=== PATIENT | female | born 1995 | race Two or more races ===

== ENCOUNTER 2023-09-28 16:57 | Emergency (ER) | payer OTHER ==
[~2023-09-28] VITALS: Ht 172.7 cm; Wt 61.2 kg
[2023-09-28] MEDS ORDERED: PRENATAL + DHA1 EAC1 PO (17:59)
[2023-09-28] MEDS ORDERED: PEPCID AC20 MG PO (17:59)
[2023-09-28 20:13] LABS: HEMATOCRIT 36.6 % (36.0-45.00); HEMOGLOBIN 12.6 g/dL (12.0-15.00); MEAN CELL VOLUME 87.5 fL (80.00-100.00); MEAN CORPUSCULAR HEMOGLOBIN 30.1 pg (27.00-32.0); MEAN CORPUSCULAR HGB CONC 34.4 g/dl (32.0-36.0); PLATELET COUNT 199 K/uL (150-450); RED BLOOD COUNT 4.19 M/uL (4.00-6.00); RED CELL DISTRIBUTION WIDTH 13.2 % (11.5-14.5)
[2023-09-28 20:39] LABS: PH,URINE 6.5 (5.0-8.0); URINE APPEARANCE Clear; URINE BILIRRUBIN Negative (NEGATIVE); URINE BLOOD Negative; URINE COLOR Yellow; URINE GLUCOSE Negative (NEGATIVE); URINE LEUKOCYTE Negative; URINE NITRATE Negative; URINE PROTEIN Negative (NEGATIVE)
[2023-09-28 20:40] LABS: URINE BACTERIA 67.9 uL (0.0-1933); URINE RBC 8.7 uL (0.0-20.8)
[2023-09-28 20:41] LABS: URINE WBC 1.3 uL (0.0-23.2)
[2023-09-28] MEDS ORDERED: PRENA1 TRUE CO1 EACH PO (21:02)
== END 2023-09-28 21:09 | disposition home or self-care (01) ==
LOC: ER 16:59
PROVIDERS: General Practice
DX: O26.891 Other specified pregnancy related conditions, first trimester (principal); Z3A.01 Less than 8 weeks gestation of pregnancy; R10.2 Pelvic and perineal pain

== ENCOUNTER 2023-11-06 07:07 | Emergency (ER) | payer OTHER ==
[~2023-11-06] VITALS: Ht 172.7 cm; Wt 62.6 kg
[~2023-11-06 07:07] MED LIST: PEPCID AC20 MG PO; PRENA1 TRUE CO1 EACH PO; PRENATAL + DHA1 EAC1 PO
== END 2023-11-06 11:09 | disposition home or self-care (01) ==
LOC: ER 07:08
DX: U07.1 COVID-19 (principal)

== ENCOUNTER 2024-03-04 09:04 | Emergency (ER) | payer OTHER ==
[~2024-03-04] VITALS: Ht 172.7 cm; Wt 67.6 kg
[2024-03-04 10:01] LABS: HEMATOCRIT 33.8 % (36.0-45.00); HEMOGLOBIN 11.6 g/dL (12.0-15.00); MEAN CELL VOLUME 88.4 fL (80.00-100.00); MEAN CORPUSCULAR HEMOGLOBIN 30.3 pg (27.00-32.0); MEAN CORPUSCULAR HGB CONC 34.3 g/dl (32.0-36.0); PLATELET COUNT 191 K/uL (150-450); RED BLOOD COUNT 3.82 M/uL (4.00-6.00); RED CELL DISTRIBUTION WIDTH 13.4 % (11.5-14.5)
[2024-03-04 10:27] LABS: INR 0.96; PARTIAL THROMBOPLASTIN TIME 27.3 SECONDS (22.0-34.0); PROTHROMBIN TIME 10.1 SECONDS (9.0-11.5)
== END 2024-03-04 12:42 | disposition home or self-care (01) ==
LOC: ER 09:05
PROVIDERS: Emergency Medicine
DX: O26.893 Other specified pregnancy related conditions, third trimester (principal); R04.0 Epistaxis; Z3A.28 28 weeks gestation of pregnancy

== ENCOUNTER 2024-05-07 21:47 | Outpatient (CLI) | payer OTHER ==
[2024-05-07 21:58] VITALS: BP 109/71
[2024-05-07] MEDS ORDERED: RINGERS SOLUTION,LACTATED 1,000 ML IV SCH (22:30)
[2024-05-07 23:20] LABS: HEMATOCRIT 34.4 % (36.0-45.00); HEMOGLOBIN 11.8 g/dL (12.0-15.00); MEAN CELL VOLUME 89.4 fL (80.00-100.00); MEAN CORPUSCULAR HEMOGLOBIN 30.6 pg (27.00-32.0); MEAN CORPUSCULAR HGB CONC 34.2 g/dl (32.0-36.0); PLATELET COUNT 183 K/uL (150-450); RED BLOOD COUNT 3.85 M/uL (4.00-6.00); RED CELL DISTRIBUTION WIDTH 13.7 % (11.5-14.5)
[2024-05-07 23:21] LABS: URINE APPEARANCE Clear; URINE BILIRRUBIN Negative (NEGATIVE); URINE BLOOD Negative; URINE COLOR Yellow; URINE GLUCOSE Negative (NEGATIVE); URINE KETONE Negative (NEGATIVE); URINE LEUKOCYTE Negative; URINE NITRATE Negative; URINE PROTEIN Negative (NEGATIVE)
[2024-05-07 23:25] LABS: URINE BACTERIA 1523.3 uL (0.0-1933); URINE RBC 16.1 uL (0.0-20.8); URINE WBC 20.4 uL (0.0-23.2)
[2024-05-07 23:34] LABS: URINE CAST 0.91 uL (0.0-1.40)
[2024-05-07 23:56] VITALS: BP 103/68
[2024-05-08 04:39] VITALS: BP 102/65
[2024-05-08 07:30] VITALS: BP 100/63; O2SAT 97
[2024-05-08] MEDS ORDERED: ACETAMINOPHEN 500 MG GEL..CAP PO ONE (10:00)
[2024-05-08 11:50] VITALS: BP 105/71; O2SAT 97
[2024-05-08 15:10] VITALS: BP 105/71
== END 2024-05-08 15:10 | disposition home or self-care (01) ==
LOC: OBS/DEL 21:47
PROVIDERS: ATTEND Obstetrics & Gynecology
DX: O26.893 Other specified pregnancy related conditions, third trimester (principal); O26.849 Uterine size-date discrepancy, unspecified trimester; O36.8199 Decreased fetal movements, unspecified trimester, other fetus; Z3A.39 39 weeks gestation of pregnancy

== ENCOUNTER 2024-05-22 05:44 | Inpatient (IN) | payer OTHER ==
[~2024-05-22] VITALS: Ht 172.7 cm; Wt 3.6 kg
[2024-05-22 06:04] VITALS: BP 113/66
[2024-05-22 06:40] LABS: PH,URINE 6.5 (5.0-8.0); URINE APPEARANCE Clear; URINE BILIRRUBIN Negative (NEGATIVE); URINE BLOOD Small; URINE COLOR Yellow; URINE GLUCOSE Negative (NEGATIVE); URINE KETONE Negative (NEGATIVE); URINE LEUKOCYTE Trace; URINE NITRATE Negative; URINE PROTEIN Negative (NEGATIVE); URINE UROBILINOGEN 0.2 E.U./dl
[2024-05-22 06:44] LABS: URINE BACTERIA 965.1 uL (0.0-1933); URINE EPITHELIAL CELLS 39.5 uL (0.0-38.8); URINE RBC 2.7 uL (0.0-20.8); URINE WBC 56.3 uL (0.0-23.2)
[2024-05-22 06:44] LABS: HEMOGLOBIN 12.8 g/dL (12.0-15.00); MEAN CORPUSCULAR HEMOGLOBIN 30.6 pg (27.00-32.0); MEAN CORPUSCULAR HGB CONC 34.7 g/dl (32.0-36.0); PLATELET COUNT 171 K/uL (150-450); RED CELL DISTRIBUTION WIDTH 14.3 % (11.5-14.5)
[2024-05-22] MEDS ORDERED: VALTREX1000 MG PO (07:11)
[2024-05-22 07:20] LABS: INR 0.94; PARTIAL THROMBOPLASTIN TIME 27.7 SECONDS (22.0-34.0); PROTHROMBIN TIME 10.3 SECONDS (9.0-11.5)
[2024-05-22 07:37] VITALS: BP 115/66; O2SAT 99
[2024-05-22] MEDS ORDERED: OXYTOCIN 20 UNITS/500ML RL PIGGYBAG IV SCH (11:15)
[2024-05-22 11:23] VITALS: BP 119/69
[2024-05-22 15:35] VITALS: BP 113/62
[2024-05-22] MEDS ORDERED: ERYTHROMYCIN BASE OPHT 1GM EACH TUBE OP ONE (19:48)
[2024-05-22] MEDS ORDERED: OXYTOCIN 10 UNITS/ML VIAL ONE (19:48)
[2024-05-22] MEDS ORDERED: CEFOXITIN SODIUM 2,000 MG VIAL IV ONE (20:01)
[2024-05-22] MEDS ORDERED: KETOROLAC TROMETHAMINE 60 MG VIAL IM STA (21:23)
[2024-05-22] MEDS ORDERED: MEPERIDINE HCL/PF 50 MG/ML VIAL IM PRN (21:30)
[2024-05-22] MEDS ORDERED: PROMETHAZINE HCL 25 MG/ML AMPUL IM PRN (21:30)
[2024-05-22] MEDS ORDERED: RINGERS SOLUTION,LACTATED 1,000 ML IV SCH (21:30)
[2024-05-22] MEDS ORDERED: OXYTOCIN 1,000 ML IV SCH (21:30)
[2024-05-22] MEDS ORDERED: CHLORHEXIDINE GLUCONATE 120 ML BOTTLE TP SCH (21:30)
[2024-05-23] MEDS ORDERED: MORPHINE SULFATE 4 MG/ML VIAL IV ONE (01:10)
[2024-05-23] MEDS ORDERED: MEPERIDINE HCL 50 MG/ML AMPUL IV ONE (02:00)
[2024-05-23 02:28] VITALS: BP 131/78
[2024-05-23 03:55] VITALS: BP 112/72
[2024-05-23 04:10] LABS: HEMATOCRIT 33.6 % (36.0-45.00); HEMOGLOBIN 11.6 g/dL (12.0-15.00); MEAN CELL VOLUME 88.1 fL (80.00-100.00); MEAN CORPUSCULAR HEMOGLOBIN 30.6 pg (27.00-32.0); MEAN CORPUSCULAR HGB CONC 34.7 g/dl (32.0-36.0); PLATELET COUNT 146 K/uL (150-450); RED BLOOD COUNT 3.81 M/uL (4.00-6.00); RED CELL DISTRIBUTION WIDTH 13.8 % (11.5-14.5)
[2024-05-23 09:00] VITALS: BP 109/72
[2024-05-23] MEDS ORDERED: OxyCODONE HCL/APAP UD (PERCOCET) PO PRN (09:00)
[2024-05-23 16:00] VITALS: BP 109/71
[2024-05-24] VITALS: BP 106/74
[2024-05-24 08:49] VITALS: BP 120/83
[2024-05-24 13:02] VITALS: BP 119/81
[2024-05-24 17:38] VITALS: BP 100/66
[2024-05-24 21:09] VITALS: BP 119/82
[2024-05-24 23:56] VITALS: BP 123/78
[2024-05-25 09:19] VITALS: BP 116/80
== END 2024-05-25 12:58 | disposition home or self-care (01) | DRG 788 ==
LOC: LDR 05:44 → OB/GYN 05:44
PROVIDERS: ADMIT Obstetrics & Gynecology; ATTEND Obstetrics & Gynecology
PROC: 4A1HXCZ Monitoring of Products of Conception, Cardiac Rate, External Approach (ICD-10-PCS; 2024-05-22)
PROC: 10D00Z1 Extraction of Products of Conception, Low, Open Approach (ICD-10-PCS; principal; 2024-05-22 23:00)
DX: O62.0 Primary inadequate contractions (principal); O36.63X0 Maternal care for excessive fetal growth, third trimester, not applicable or unspecified; Z3A.39 39 weeks gestation of pregnancy; Z37.0 Single live birth; Z20.822 Contact with and (suspected) exposure to COVID-19